=== PATIENT | male | born 1990 | race Caucasian/White ===

== ENCOUNTER 2019-05-13 14:25 | Emergency (ER) | payer OTHER, SELFPAY ==
[2019-05-13 14:45] VITALS: BP 140/79; PULSE 78; RESP 16; TEMP 36.9; O2SAT 99
--- NOTE | 2019-05-13 15:08 | ED.EAR ---
HPI - Ear Problem General Chief complaint: Ear Stated complaint: Ear Issue Time Seen by Provider: 05/13/19 15:04 Source: patient and RN notes reviewed Mode of arrival: ambulatory Limitations: no limitations History of Present Illness HPI Narrative: Patient presents today with a one-month history of decreased hearing bilaterally. Symptoms began while he was on vacation swimming. He has tried Debrox drops without relief. Denies pain or drainage. MD Complaint: decreased hearing Related Data Home Medications Medication Instructions Recorded Confirmed No Home Medications 05/13/19 05/13/19 Allergies Allergy/AdvReac Type Severity Reaction Status Date / Time NKDA Allergy Mild Uncoded 03/23/08 17:01 Review of Systems Review of Systems: Narrative: CONSTITUTIONAL: Denies body aches, fever, chills, or sweats. EYES: Denies visual changes, redness, or discharge. ENT: Denies rhinorrhea, congestion, sore throat, or otalgia. Decreased hearing bilaterally CARDIOVASCULAR: Denies chest pain, palpitations, or edema. RESPIRATORY: Denies cough or dyspnea. GASTROINTESTINAL: Denies abdominal pain, nausea, vomiting, or diarrhea. GENITOURINARY: Denies dysuria or hematuria. SKIN: Denies rash, itching, or wounds. MUSCULOSKELETAL: Denies back pain, joint pain, or myalgia. NEUROLOGIC: Denies headache, numbness, tingling, or weakness. PSYCH: Denies depression or anxiety. PMFSH Comments At time of signature, I have reviewed and agree with nursing past medical, surgical, social and family history unless otherwise noted. Please see nursing chart for further information. There is no relevant family history pertinent to the presenting complaint Exam Narrative: Exam Narrative: GENERAL: Well-appearing, well-nourished, and in no acute distress. HEAD: Normocephalic, atraumatic. EYES: EOMI. No redness or drainage. Conjunctivae normal. ENT: Mucous membranes pink and moist. Nares clear. No rhinorrhea. Bilateral cerumen impactions. NECK: Normal AROM. CHEST: No respiratory distress. EXTREMITIES: Normal range of motion. No edema. SKIN: Warm, dry, no rash. NEURO: No focal deficits. Alert and oriented x3. Gait steady. PSYCH: Normal affect. No signs of depression or anxiety. Course Vital Signs Vital signs: Vital Signs Temperature 98.4 F 05/13/19 14:45 Pulse Rate 78 05/13/19 14:45 Respiratory Rate 16 05/13/19 14:45 Blood Pressure 140/79 05/13/19 14:45 Pulse Oximetry 99 05/13/19 14:45 Temperature 98.4 F 05/13/19 14:45 Pulse Rate 78 05/13/19 14:45 Respiratory Rate 16 05/13/19 14:45 Blood Pressure 140/79 05/13/19 14:45 Pulse Oximetry 99 05/13/19 14:45 Reviewed. Pt has been instructed to follow up with his PCP regarding his elevated blood pressure today. Procedures Ear Wax Removal Both Ears: Ear Wax Removal Date: 05/13/19 Ear Wax Removal Time: 15:12 Cerumenolytic Used: other (Hydrogen peroxide) Results: Re-examined: cerumen removed completely TM Examination: TM(s) intact, normal appearance Ear Canal Exam: atraumatic Patient Tolerated Procedure: well Complications: no problems Technique: ear canal irrigated and ear canal curetted Medical Decision Making Differential Diagnosis Differential Diagnosis: AOM, otitis externa, ruptured TM, serous otitis, eustachian tube dysfunction, cerumen impaction Vital Signs Vital Signs: Vital Signs Temperature 98.4 F 05/13/19 14:45 Pulse Rate 78 05/13/19 14:45 Respiratory Rate 16 05/13/19 14:45 Blood Pressure 140/79 05/13/19 14:45 Pulse Oximetry 99 05/13/19 14:45 Temperature 98.4 F 05/13/19 14:45 Pulse Rate 78 05/13/19 14:45 Respiratory Rate 16 05/13/19 14:45 Blood Pressure 140/79 05/13/19 14:45 Pulse Oximetry 99 05/13/19 14:45 Critical Care Time Critical Care Time Critical Care Time: No Discharge Plan Discharge Clinical Impression: Bilateral impacted cerum
== END 2019-05-13 15:58 | disposition home or self-care (01) ==
PROVIDERS: Emergency Provider Nurse Practitioner
DX: H61.23 Impacted cerumen, bilateral (principal)
CPT/HCPCS: 69210; 99202; G0463

== ENCOUNTER 2019-09-09 08:01 | Emergency (ER) | payer OTHER, SELFPAY ==
--- NOTE | ~2019-09-09 | XR_ITS ---
EXAMINATION: XR hand LT min 3V DATE: 09/09/2019 08:39 INDICATION: Left hand fourth digit injury. TECHNIQUE: 3 views of left hand were obtained. COMPARISON: Left thumb radiograph 03/23/2008 FINDINGS: Bone alignment is normal. There is a punctate calcification at the palmar base of third mid dle phalanx. Joint spaces are normal. IMPRESSION: 1. Punctate calcification at the palmar base of third middle phalanx, which may be an acute avulsion fracture or a chronic finding. Reviewed, dictated and finalized at location A.
[2019-09-09 08:05] VITALS: BP 118/72; PULSE 76; RESP 18; TEMP 36.8; O2SAT 100
[2019-09-09] MEDS: TETANUS,DIPHTHERIA,AC PERTUSSIS ADULT (0.5 ML) BOOSTRIX IM (08:56)
--- NOTE | 2019-09-09 08:58 | ED.UPPEXIN ---
HPI - Extremity Injury (Upper) General Chief Complaint: Extremity Injury, Upper Stated Complaint: Left Ring Finger Laceration Time Seen by Provider: 09/09/19 08:03 History of Present Illness HPI narrative: Patient is a 29-year-old male who presents the ER with injury to the left ring finger. He was jumping off of his forklift and was holding onto a bar when his ring got caught on the bar. It tore out his left fourth digit at the base and he suffered laceration on the palmar aspect near the MCP. Range of motion is intact. She has remove the ring. Reports some tingling around where his ring used to be. Related Data Allergies Allergy/AdvReac Type Severity Reaction Status Date / Time NKDA Allergy Mild Uncoded 03/23/08 17:01 Review of Systems Review of Systems: All systems reviewed & are unremarkable except as noted in HPI and below PMFSH Past Medical History Medical History (Updated 09/09/19 @ 11:14 by René Banuelos MD) Healthy adult male Surgical History Surgical History (Updated 09/09/19 @ 08:59 by René Banuelos MD) History of placement of ear tubes Social History Social History (Updated 09/09/19 @ 09:00 by René Banuelos MD) Social History: Non-smoker Gender identity (if verbalized by the patient): Male Exam Narrative: Exam Narrative: GENERAL: Well-appearing, well-nourished, and in no acute distress. HEAD: Normocephalic, atraumatic. HEART: Regular rate and rhythm. Normal peripheral pulses. EXTREMITIES: Normal range of motion. Normal strength with isolation of the DIP/PIP/MCP of the 3rd/4th digits on the left. Sharp touch intact. 3cm palmar laceration at the base of the left 4th digit into the fact, no exposure of bone/tendon. SKIN: Warm, dry, no rash. Lac as as above. NEURO: No focal deficits. Alert and oriented x3. PSYCH: Normal mood and affect. Course Course Emergency Course: Patient sutured. Tech placed AlumaFoam splint. Discussed case with Dr. Ramirez who will follow-up the patient in the next week. Avulsion at the base of the third and the injury is at the base of the fourth. Vital Signs Vital signs: Vital Signs Temperature 98.3 F 09/09/19 08:05 Pulse Rate 76 06/01/20 08:05 Respiratory Rate 18 09/09/19 08:05 Blood Pressure 118/72 09/09/19 08:05 Pulse Oximetry 100 09/09/19 08:05 Temperature 98.3 F 09/09/19 08:05 Pulse Rate 76 09/09/19 08:05 Respiratory Rate 18 09/09/19 08:05 Blood Pressure 118/72 09/09/19 08:05 Pulse Oximetry 100 09/09/19 08:05 Procedures Laceration Laceration 1: Date: 09/09/19 Time: 11:00 Site: other (4th finger left) Size (cm): 3 Description: linear and clean Depth: simple, single layer Local Anesthetic: lidocaine 1% and with epi Amount of anesthesia used (mL): 1.5 Pre-repair: wound explored and irrigated ====== Skin Level ====== Skin layer closed with: nylon Size (cm): 5-0 Number of sutures: 5 ====== Subcutaneous Layer ====== ====== Muscle Layer ====== ====== Tendon Layer ====== Orthopedic Splinting/Casting Injury #1: Splinting/Casting Date: 09/09/19 Splinting/Casting Time: 11:00 Side: left Upper Extremity Injury Location: finger Upper Extremity Immobilizer: aluminum form splint Pre-Procedure Neuro Vascular Exam: normal Post-Procedure Neuro Vascular Exam: normal Discharge Plan Discharge Clinical Impression: Finger laceration, Avulsion fracture of proximal phalanx of finger Patient Disposition: Home, Self-Care Condition: Stable Instructions: Laceration (ED), Avulsion Fracture (ED) Additional Instructions: You suffered a laceration to your finger. The sutures will need to be removed in 2 weeks. Additionally on your x-ray there is a possible avulsion fracture at the base of your third finger. The hand surgeon would like you to follow-up in clinic for niranjan
[2019-09-09 11:34] VITALS: BP 132/70; PULSE 78; RESP 18; O2SAT 100
== END 2019-09-09 11:36 | disposition home or self-care (01) ==
PROVIDERS: Emergency Provider Emergency Medicine
DX: S61.215A Laceration without foreign body of left ring finger without damage to nail, initial encounter (principal); S62.623A Displaced fracture of middle phalanx of left middle finger, initial encounter for closed fracture; Z23 Encounter for immunization; W24.0XXA Contact with lifting devices, not elsewhere classified, initial encounter
CPT/HCPCS: 12002; 29130; 73130; 90471; 90715; 99284

== ENCOUNTER 2020-06-10 16:30 | Outpatient (CLI) | payer OTHER, SELFPAY ==
--- NOTE | 2020-06-10 16:40 | PC.NURSE ---
Patient informed nurse prior to injection that he gets very lightheaded when he gets injections. Placed in room 1 and injection given while patient in supine position. Feeling slightly lightheaded call light given vitals [id number]
== END 2020-06-10 16:31 | disposition home or self-care (01) ==
LOC: ANHCOVIDVC 16:30
DX: Z23 Encounter for immunization (principal)
CPT/HCPCS: 0001A; 91300

== ENCOUNTER 2020-07-01 16:30 | Outpatient (CLI) | payer OTHER, SELFPAY | END 2020-07-01 16:31 | disposition home or self-care (01) | LOC: ANHCOVIDVC 16:30 | DX: Z23 Encounter for immunization (principal) | CPT/HCPCS: 0002A; 91300 ==

== ENCOUNTER 2022-10-13 09:27 | Emergency (ER) | payer OTHER, SELFPAY ==
[2022-10-13 09:32] VITALS: BP 135/82; PULSE 88; RESP 16; TEMP 37.3; O2SAT 99
--- NOTE | 2022-10-13 10:00 | ED.URI ---
HPI - URI/Sore Throat General Chief Complaint: Ear Stated Complaint: Sinus/Ear Irritation/Headache Time Seen by Provider: 10/13/22 10:00 Source: patient Mode of arrival: ambulatory Limitations: no limitations History of Present Illness HPI Narrative: 32-year-old male presents with complaint of nasal congestion for 5 days. Patient also reports pain and decreased hearing to left ear. Afebrile. Taking Sudafed and [id number] Tylenol severe. All systems reviewed and negative except as noted above. Related Data Allergies Allergy/AdvReac Type Severity Reaction Status Date / Time No Known Allergies Allergy Verified 10/13/22 09:43 Review of Systems Review of Systems: CONSTITUTIONAL: Denies fever, chills, or sweats. EYES: Denies visual changes, redness, or discharge. ENT: Reports rhinorrhea, congestion, left ear pain with decreased hearing. Denies sore throat CARDIOVASCULAR: Denies chest pain, palpitations, or edema. RESPIRATORY: Denies cough or dyspnea. GASTROINTESTINAL: Denies abdominal pain, nausea, vomiting, or diarrhea. GENITOURINARY: Denies dysuria or hematuria. SKIN: Denies rash or itching. MUSCULOSKELETAL: Denies back pain, joint pain, or myalgia. NEUROLOGIC: Denies headache, numbness, or weakness. PSYCHIATRIC: Denies anxiety or depression. All other systems reviewed are negative, except as documented in HPI. [facility] Past Medical History Medical History (Updated 10/13/22 @ 10:23 by Letitia Cordero NP) Healthy adult male Surgical History Surgical History (Updated 09/09/19 @ 08:59 by René Banuelos MD) History of placement of ear tubes Social History Social History (Updated 09/09/19 @ 09:00 by René Banuelos MD) Social History: Non-smoker Gender identity (if verbalized by the patient): Male Comments At time of signature, agree with nursing past medical, surgical, social and family history. There is no relevant family history pertinent to the presenting complaint. Exam Narrative: GENERAL: This is a well-nourished, well-developed patient, in no apparent distress. HEAD: normocephalic, atraumatic. EYES: PERRL. Sclera clear/white. Vision is grossly intact. EARS: External ears normal, bilateral ear canals impacted with cerumen. After irrigation right TM is normal. Left TM is erythematous and retracted. NOSE: External nose normal with Purulent nasal drainage with moderate congestion. THROAT: Mucous membranes moist, posterior pharynx clear. NECK: Neck supple, non-tender without lymphadenopathy, masses or thyromegaly. CARDIOVASCULAR: Regular rate and rhythm without murmurs, gallops, or rubs. RESPIRATORY: Clear to auscultation. Breath sounds equal bilaterally. No wheezes, rales, or rhonchi. SKIN: warm, Dry, intact with no suspicious lesions or rash, good texture and turgor. NEURO: awake, alert, and oriented to person, place and time. There were no obvious focal neurologic abnormalities. EXTREMITIES: No joint tenderness, effusion, or edema noted. Course Course Level of Care: Express Care Visit Vital Signs Vital signs: Vital Signs Temperature 37.3 C 10/13/22 09:32 Pulse Rate 88 10/13/22 09:32 Respiratory Rate 16 10/13/22 09:32 Blood Pressure 135/82 10/13/22 09:32 Pulse Oximetry 99 10/13/22 09:32 Oxygen Delivery Room Air 10/13/22 09:32 Temperature 37.3 C 10/13/22 09:32 Pulse Rate 88 10/13/22 09:32 Respiratory Rate 16 10/13/22 09:32 Blood Pressure 135/82 10/13/22 09:32 Pulse Oximetry 99 10/13/22 09:32 Oxygen Delivery Room Air 10/13/22 09:32 reviewed Procedures Ear Wax Removal Both Ears: Ear Wax Removal Date: 10/13/22 Ear Wax Removal Time: 10:15 Cerumenolytic Used: other (wam water and hydrogen peroxide) Results: Re-examined: cerumen removed completely TM Examination: TM(s) intact, normal appearance ( right) and TM(s) erythematous ( left) Ear Canal Exam: atraumatic P
== END 2022-10-13 10:32 | disposition home or self-care (01) ==
PROVIDERS: Emergency Provider Nurse Practitioner Family
DX: H61.23 Impacted cerumen, bilateral (principal); H66.92 Otitis media, unspecified, left ear; J01.90 Acute sinusitis, unspecified
CPT/HCPCS: 69209; 99213; A9270; G0463